=== PATIENT | female | born 1990 | race Hispanic/Latino ===

== ENCOUNTER 2017-06-13 20:27 | Emergency (ER) | payer BC ==
[2017-06-13 21:09] LABS: Bilirubin Negative (Negative); Blood, Urine Negative (Negative); Glucose, Urine (Dipstick) Negative (Negative); Ketone, Urine Negative (Negative); Nitrite Positive (Negative); Protein, Urine (Dipstick) Negative (Neg-Trace); Urobilinogen 0.2 mg/dL (0.2-1.0)
[2017-06-13 21:12] LABS: RBC/HPF 0-3 HPF (0-3)
[2017-06-13 21:13] LABS: Bacteria/HPF 4+ HPF (None Seen); Renal Epithelial 0-3 HPF (0-3)
[2017-06-13] MEDS ORDERED: cefTRIAXone\\ROCEPHIN 1 GM VIAL ONE (22:03)
--- NOTE | 2017-06-24 16:29 | EKG ---
Test Reason : Blood Pressure : / mmHG Vent. Rate : 146 BPM Atrial Rate : 146 BPM P-R Int : 118 ms QRS Dur : 066 ms QT Int : 266 ms P-R-T Axes : 058 020 017 degrees QTc Int : 414 ms Sinus tachycardia Cannot rule out Anterior infarct , age undetermined Nonspecific T wave abnormality Abnormal ECG Confirmed by NAT KOWALSKI, MORALES ([id number]), rewrite editor ARABELLA GRAHAM ([id number]) on 06/24/2017 4:29:46 PM Referred By: NAT Confirmed By:MORALES JOHNS MD
== END 2017-06-13 23:20 | disposition home or self-care (01) ==
LOC: SCSER 20:27
DX: O23.12 Infections of bladder in pregnancy, second trimester (principal); O99.352 Diseases of the nervous system complicating pregnancy, second trimester; G82.20 Paraplegia, unspecified; O99.89 Other specified diseases and conditions complicating pregnancy, childbirth and the puerperium; R00.0 Tachycardia, unspecified; Z3A.15 15 weeks gestation of pregnancy
CPT/HCPCS: 81003; 81015; 87086; 87186; 93005; 96365; J0696

== ENCOUNTER 2017-09-04 17:29 | Emergency (ER) | payer BC, OTHER, SELFPAY ==
[~2017-09-04 17:29] MED LIST: ISOVUE-370 76%-LOCM 1 ML ONE
[2017-09-04 18:08] LABS: #Eosinphils 0.1 thou/uL (0.0-0.7); #Lymphocytes 1.1 thou/uL (1.20-3.40); #Monocytes 0.7 thou/uL (0.11-0.59); #Neutrophils 8.9 thou/uL (1.40-6.50); %Eosinophils 0.6 % (0.0-10.0); %Lymphocytes 10.3 % (21.0-51.0); %Monocytes 6.2 % (0.0-10.0); Hemoglobin 12.7 g/dL (12.0-16.0); Mean Corpuscular HGB CONC 33.5 g/dL (32.0-36.0); Mean Corpuscular Volume 92.7 fl (81.0-99.0); Mean Platelet Volume 10.4 fL (7.4-10.4); Platelet Count 144 thou/uL (130-400); RBC Distribution Width 13.4 % (11.5-14.5); Red Blood Cell (RBC) Count 4.11 mill/uL (4.20-5.40); White Blood Cell (WBC) Count 10.7 thou/uL (4.8-10.8)
[2017-09-04 18:24] LABS: ALT (SGPT) 19 U/L (8-55); AST (SGOT) 21 U/L (5-34); Albumin 3.5 g/dL (3.5-5.0); Alkaline Phosphatase 70 U/L (40-150); Anion Gap 13 mmol/L (10-20); BUN (Urea Nitrogen) 8 mg/dL (7.0-18.7); Bilirubin, Total 0.3 mg/dL (0.2-1.2); Calc. Creatinine Clearance 0 mL/min (70-130); Calcium 8.9 mg/dL (7.8-10.44); Carbon Dioxide 22 mmol/L (22-29); Chloride 105 mmol/L (98-107); Estimated GFR-MDRD Greater than 90; Globulin 3.1 g/dL (2.4-3.5); Glucose 76 mg/dL (70-105); Potassium 3.4 mmol/L (3.5-5.1); Protein, Total 6.6 g/dL (6.0-8.3); Sodium 137 mmol/L (136-145)
[2017-09-04] MEDS ORDERED: Metoclopramide HCl 10 MG/2 ML VIAL ONE (19:41)
[2017-09-04 20:24] LABS: Bilirubin Negative (Negative); Blood, Urine Negative (Negative); Clarity CLEAR (Clear); Glucose, Urine (Dipstick) Negative (Negative); Leukocyte Trace (Negative); Nitrite Negative (Negative); Protein, Urine (Dipstick) Negative (Neg-Trace); Specific Gravity, Urine 1.015 (1.002-1.036); Urobilinogen 0.2 mg/dL (0.2-1.0)
[2017-09-04 20:32] LABS: Bacteria/HPF Rare-Few HPF (None Seen); Hyaline Casts/LPF 0-3 HYALINE CAST LPF (0-3 Hyaline); Pathc Cast-AUWi Flag 0.27 (0-2.49); RBC/HPF 0-3 HPF (0-3)
--- NOTE | 2017-09-04 21:33 | ULT ---
BILATERAL LOWER EXTREMITY VENOUS DOPPLER: Date: 09-04-17 Provided Clinical History: Tachycardia. FINDINGS: Grayscale and color doppler sonography with spectral analysis was performed of the bilateral common f emoral, femoral, popliteal, posterior tibial, greater saphenous, and profunda femoral veins, demonstr ating a normal sonographic appearance to each. IMPRESSION: No sonographic evidence for lower extremity deep venous thrombosis. POS: ELLY
--- NOTE | 2017-09-04 22:58 | CT ---
CT PULMONARY ANGIOGRAM WITH IV CONTRAST AND 3D MIP RECONSTRUCTIONS: Date: 09-04-17 Provided Clinical History: Tachycardia. Dyspnea. FINDINGS: There is no evidence for central or proximal segmental pulmonary embolus. Evaluation of the more dist al pulmonary arterial system is limited due to suboptimal bolus timing. The heart, pericardium, and g reat vessels demonstrate an unremarkable CT angiographic appearance. The lungs appear clear. There is no pleural fluid or pneumothorax apparent. No evidence for thoracic lymph nodes enlargement. The air way appears patent and of normal caliber. Osseous structures demonstrate no acute findings. Post-oper ative changes involving the thoracic spine are noted. Visualized portions of the upper abdomen demons trate no acute findings. IMPRESSION: No evidence for central or proximal segmental pulmonary embolus. POS: ELLY
== END 2017-09-04 23:45 | disposition home or self-care (01) ==
LOC: ERS 17:29
DX: O99.89 Other specified diseases and conditions complicating pregnancy, childbirth and the puerperium (principal); R00.0 Tachycardia, unspecified; Z3A.26 26 weeks gestation of pregnancy; Z79.899 Other long term (current) drug therapy
CPT/HCPCS: 36415; 71275; 80053; 81003; 81015; 85025; 85379; 87086; 93005; 93970; 96365; 96366; J2765

== ENCOUNTER 2017-09-22 09:58 | Inpatient (IN) | payer MEDICAID, OTHER ==
[2017-09-22] MEDS ORDERED: Lactated Ringer's 500 ML IV SCH ×2 (10:15→10:30)
--- NOTE | 2017-09-22 10:39 | PDOC.LDHP ---
Labor and Delivery H&P Chief complaint: contractions HPI: This is a 27 year old @ 29.2 WGA who presents with contractions. She started having contractions when she woke up around 6am and stated that she was having about 5 ctx an hour. She had associated SOB with each ctx. She reports that her last ctx was around 9am. She denies any LOF or vaginal bleeding and she reports good movement. She has had ctx before whenever she had a UTI. Her last UTI was in May. Current gestational age (weeks): 29 (2 days) Dating criteria: last menstrual period Grav: 1 Para: 0 Current complications: other (Frequent UTI's 2/2 regular straight caths due to neurogenic bladder. Autonomic dysfunction Paraplegia) Social history: none - Physical Exam Abnormal vital signs: Tachycardia to the 160s General: NAD Heart: other (tachycardic, regular rhythm) Lungs: CTAB Abdomen: gravid Extremeties: no edema FHT: category 1 (mod tony/Baseline 140s), variability present Gravette contractions every: occasional - Vaginal Exam cm dilated: 1 Effacement: 25% Station: -3 - OB Labs Blood type: O RH: positive Antibody Screen: negative HIV: negative RPR: negative HEPSAg: negative 1 hour GCT: negative GBS: unknown Rubella: immune - Assessment 27 y/o @ 29.2 WGA presents with ctx, r/o pre-term labor -Collect FFN and hold -Sterile speculum exam -Cervical length by ultrasound -Check cervix for dilation -Urinalysis -CBC/BMP -NS bolus -VP3 The patient is high risk due to her autonomic dysfunction as her heart rate jumps into the 160s every time she has a contraction. She will require constant cardiac monitoring during labor and will need to deliver in [place]. If the patient is showing any signs of pre-term labor we will stabilize her and give her steroids and then transfer her to [place]. We will be in contact with her physicians in [place] at . 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 She has neurogenic bladder and self-caths. She has had a few UTI's in , but her most recent urine cultures have been negative. She has also had a cervical length checked every other week due to concern that she may not feel contractions. --- The patient on her cervical check was 20/-3. Her most recent check had been closed. Her cervical length was 2.5-3 and her most recent cervical length in the office was 4.0. The patient is at high risk for being in pre-term labor at this time and with her risk factors, we would like to transfer her to [place] where she could have cardiac monitoring and be delivered there if that becomes necessary. -Spoke on the phone to Dr. Tiki Louie at [place] [facility], who agreed to accept the patient as a transfer. -Will give Celestone -Mag 6 gram loading dose - Plan -: Transfer [facility] <Melvi Guerrero - Last Filed: 09/22/17 11:53> <Viri Hamilton - Last Filed: 09/22/17 12:02> Allergies/Adverse Reactions: Allergies Allergy/AdvReac Type Severity Reaction Status Date / Time No Known Allergies Allergy Unverified 09/22/17 10:29 Attending Addendum - Attending Addendum I personally evaluated the patient and discussed the management with Dr. Guerrero. Also discussed with patients PCP, Dr. Farah I agree with the History, Examination, Assessment and Plan documented above with any addition or exceptions noted below. 27 y/o G1 at 29 2/7 weeks with T4 paraplegia who presented with ctx. After workup showed shortened cervical length (2.5-3 cm) and persistent ctx and dilation to 20/-3 diagnosed with labor. Loading with 6 gm MgSO4 and dexamethasone IM given. Delivery needs to be where continuous cardiac monitoring is available. Will transfer to [facility] for further management. <Viri Hamilton - Last Filed: 09/22/17 12:02>
[2017-09-22 10:40] VITALS: BMI 21.7
[2017-09-22 11:38] LABS: #Basophils 0.1 thou/uL (0.0-0.2); #Eosinphils 0.1 thou/uL (0.0-0.7); #Lymphocytes 1.2 thou/uL (1.20-3.40); #Monocytes 0.7 thou/uL (0.11-0.59); #Neutrophils 6.8 thou/uL (1.40-6.50); %Basophils 0.8 % (0.0-1.0); %Eosinophils 0.9 % (0.0-10.0); %Lymphocytes 13.5 % (21.0-51.0); %Neutrophils 76.9 % (42.0-75.0); Hemoglobin 12.2 g/dL (12.0-16.0); Mean Corpuscular HGB CONC 32.8 g/dL (32.0-36.0); Mean Corpuscular Hemoglobin 32.4 pg (27.0-31.0); Mean Corpuscular Volume 98.9 fl (81.0-99.0); Mean Platelet Volume 11.2 fL (7.4-10.4); Platelet Count 154 thou/uL (130-400); RBC Distribution Width 13.9 % (11.5-14.5); Red Blood Cell (RBC) Count 3.78 mill/uL (4.20-5.40); White Blood Cell (WBC) Count 8.9 thou/uL (4.8-10.8)
[2017-09-22] MEDS ORDERED: SODIUM CHLORIDE IVPB SCH (11:45)
[2017-09-22] MEDS ORDERED: ADMIXTURE FEE IVPB SCH (11:45)
[2017-09-22] MEDS ORDERED: Betamet Acet/Betamet Na Ph 30 MG/5 ML VIAL IM SCH (11:45)
[2017-09-22] MEDS ORDERED: MAGNESIUM SULFATE IVPB SCH (11:45)
[2017-09-22] MEDS ORDERED: Magnesium Sulfate 20 gm/500 ml 20 GM/500 ML BAG ONE (11:50)
[2017-09-22 12:00] LABS: Anion Gap 11 mmol/L (10-20); BUN (Urea Nitrogen) 8 mg/dL (7.0-18.7); Calc. Creatinine Clearance 140 mL/min (70-130); Calcium 9.1 mg/dL (7.8-10.44); Carbon Dioxide 22 mmol/L (22-29); Chloride 108 mmol/L (98-107); Estimated GFR-MDRD Greater than 90; Glucose 86 mg/dL (70-105); Potassium 3.3 mmol/L (3.5-5.1); Sodium 138 mmol/L (136-145)
[2017-09-22 12:01] LABS: Bilirubin Negative (Negative); Blood, Urine Negative (Negative); Clarity CLEAR (Clear); Glucose, Urine (Dipstick) Negative (Negative); Leukocyte Negative (Negative); Nitrite Negative (Negative); Protein, Urine (Dipstick) Negative (Neg-Trace); Specific Gravity, Urine 1.023 (1.002-1.036); pH, Urine 6.5 (5.0-9.0)
[2017-09-22 12:03] LABS: Bacteria/HPF None Seen HPF (None Seen); RBC/HPF None Seen HPF (0-3); WBC/HPF 0-3 HPF (0-3)
[2017-09-22 12:07] LABS: Pathc Cast-AUWi Flag 3.52 (0-2.49)
[2017-09-22 12:14] LABS: Hyaline Casts/LPF 0-3 HYALINE CAST LPF (0-3 Hyaline)
--- NOTE | 2017-09-22 13:31 | ULT ---
LIMITED ULTRASOUND OF THE CERVIX FOR EVALUATION OF CERVICAL LENGTH: DATE: 09/22/17. HISTORY: Positive . The patient is 30 weeks and having contractions. Evaluation of cervica l length was requested. FINDINGS: Multiple endovaginal sonographic images of the pelvis are obtained. The cervical length was measured with 2 separate measurements of 2.5 cm and 2.99 cm. Evaluation of the presentation of the fetus was not performed on this exam. IMPRESSION: Limited examination of the cervix with cervical length measuring 2.5 cm and 2.99 cm on 2 separate essence surements. POS: ELLY
--- NOTE | 2017-09-22 22:30 | DIS-2 ---
DATE OF ADMISSION: 09/22/2017 DATE OF DISCHARGE: 09/22/2017 RESIDENT: Melvi Guerrero MD ATTENDING: Viri Hamilton M.D. CONSULTATIONS: None. PROCEDURES: None. IMAGING: ultrasound for cervical lengths showed a cervical length measuring 2.5 cm and 2.99 cm on two separate measurements. PRIMARY DIAGNOSES: 1. Concern for labor. 2. Bacterial vaginosis. 3. A 29-week live intrauterine . 4. Paraplegia. 5. Maternal tachycardia. DISCHARGE MEDICATIONS: 1. Fluconazole 150 mg p.o. daily. 2. Folic acid 1 mg daily. 3. Nitrofurantoin 100 mg daily. 4. vitamin 1 tablet daily. DISCONTINUED MEDICATIONS: None. HISTORY OF PRESENT ILLNESS/HOSPITAL COURSE: This is a 27-year-old female G1, P0 at 29.2 weeks gestat ional age, who presented to labor and delivery from [facility] due to contracti ons that had been going on since she woke up this morning. The patient reported several contractions per hour, but no loss of fluids and good movement. The patient has been seen in [place] and w ill need to be delivered in [place] due to her paraplegia and her tachycardia, possibly autonomic dys function because her heart rate jumps into the 160s every time she has a contraction. She will need constant continuous cardiac monitoring. The patient reported that her contractions stopped around 9: 00 a.m., but when she was having the contractions, they were causing shortness of breath and was very painful. The patient was on the monitor. She seemed to have a few contractions that she did not fe el and as well as some uterine irritability. The heart tones were category 1. Maternal heart rate was 160 on admission. The patient had her cervix checked and it was dilated to 120 and -3. The patient had a cervical ultrasound. Her cervical length ultrasound that measured her cervix at 2.5 c m to 3 cm. Her most recent one, one week ago was 4 cm. There is a concern for labor with al l of these findings and showed that the patient's physician in [place] was contacted and the physicia n agreed to accept the patient upon transfer. The patient was given Celestone as well as 500 mL bolu s and 6 grams load of magnesium. The patient also was found after she had been transferred that her VP3 came back positive for Gardnerella. This was sent to the accepting hospital. She will need to b e treated for this as well and could be the cause of her contractions. DISPOSITION: Stable. DISCHARGE INSTRUCTIONS: 1. Location: [facility] in [place] via ambulance. 2. Diet: Regular. 3. Activity: As tolerated. 4. Followup: With Dr. Farah at [facility] within 3-5 days of discharge from [facility].
== END 2017-09-22 13:07 | disposition short-term general hospital (02) | DRG 778 ==
LOC: L&D/OP 09:58 → L&D 12:00
PROVIDERS: ADMIT Family Medicine; ATTEND Family Medicine
DX: O60.03 Preterm labor without delivery, third trimester (principal); G82.20 Paraplegia, unspecified; O23.593 Infection of other part of genital tract in pregnancy, third trimester; O23.43 Unspecified infection of urinary tract in pregnancy, third trimester; Z3A.29 29 weeks gestation of pregnancy; O26.893 Other specified pregnancy related conditions, third trimester; R00.0 Tachycardia, unspecified
CPT/HCPCS: 36415; 51702; 76815; 80048; 81001; 85025; 87480; 87510; 87660; 99285; J0702; J3475; J7050

== ENCOUNTER 2017-11-12 13:25 | Emergency (ER) | payer OTHER | END 2017-11-12 14:26 | disposition home or self-care (01) | LOC: SCSER 13:25 | DX: O90.89 Other complications of the puerperium, not elsewhere classified (principal); G97.82 Other postprocedural complications and disorders of nervous system; G95.9 Disease of spinal cord, unspecified; Z79.899 Other long term (current) drug therapy | CPT/HCPCS: 99283 ==

== ENCOUNTER 2017-11-14 20:56 | Emergency (ER) | payer OTHER ==
[2017-11-14] MEDS ORDERED: Bacitracin Zinc 1 Packet ONE (21:35)
== END 2017-11-14 21:49 | disposition home or self-care (01) ==
LOC: SCSER 20:56
DX: O99.73 Diseases of the skin and subcutaneous tissue complicating the puerperium (principal); L89.322 Pressure ulcer of left buttock, stage 2; Z79.899 Other long term (current) drug therapy
CPT/HCPCS: 99282